=== PATIENT | female | born 1975 | race Caucasian/White ===

== ENCOUNTER 2025-04-29 14:53 | Emergency (ER) | payer OTHER ==
[~2025-04-29] VITALS: Ht 182.9 cm; Wt 106.6 kg
[2025-04-29] MEDS ORDERED: POLY119P PO (15:30)
[2025-04-29 15:55] LABS: APPEARANCE,URINE CLEAR (CLEAR); BLOOD, URINE Small Ery/uL (NEGATIVE); LEUKOCYTE ESTERASE ,URINE Small (NEGATIVE); NITRITE, URINE NEGATIVE (NEGATIVE); UGLUCOSE Negative (NEGATIVE)
[2025-04-29 15:57] LABS: ADD URINE CULTURE YES; PREGNANCY TEST URINE QUAL NEGATIVE (NEGATIVE); SQUAMOUS EPITHELIAL CELL,UR Few /HPF (None Seen)
[2025-04-29] MEDS ORDERED: NITR100C6 PO (16:06)
[2025-04-29 16:19] VITALS: BP 129/91; TEMP 98.7; O2SAT 98
[2025-05-07] MEDS ORDERED: CEFD300C3 PO (08:04)
== END 2025-04-29 16:20 | disposition home or self-care (01) ==
LOC: ER 15:04
DX: K59.00 Constipation, unspecified (principal); N39.0 Urinary tract infection, site not specified; M54.9 Dorsalgia, unspecified; Z90.710 Acquired absence of both cervix and uterus
CPT/HCPCS: 81001; 84703-TC; 87086-TC; 87186-TC